=== PATIENT | male | born 1985 | race Caucasian/White ===

== ENCOUNTER → 2020-12-22 12:35 | Outpatient (CLI) | payer OTHER, SELFPAY ==
--- NOTE | 2020-12-22 | DI.MRI.S_ITS ---
PROCEDURE: MR CERVICAL SPINE WO CON INDICATIONS: Cervicalgia TECHNIQUE: Noncontrast sagittal T1 spin echo and T2 fast spin echo, sagittal STIR, foraminal oblique sagittal T2 fast spin echo, and axial gradient echo or T2 fast spin echo through the cervical spine. COMPARISON: None. FINDINGS: Image quality: Diagnostic, with note made of motion artifact. Alignment and Curvature: There is normal bony alignment. Bone Marrow: Marrow demonstrates normal overall signal. Spinal Cord: Visualized spinal cord has normal size and signal. No cerebellar tonsillar herniation. Paraspinous Soft Tissues: No paravertebral masses. Prevertebral soft tissues are normal in thickness. C2-C3: Normal appearance. C3-C4: The disc height is well-preserved. Loss of disc signal is seen at this level. Moderate generalized disc osteophyte complex is seen. There is a central disc protrusion seen. Mild facet joint hypertrophy is seen. Moderate bilateral neural foraminal narrowing is seen. Mild to moderate central canal narrowing is seen. C4-C5: The disc height and disk signal are well-preserved. A mild degree of generalized disc osteophyte complex is seen. [id number] right-sided and mild left-sided facet hypertrophy is seen. There is [id number]-vhdkhujs right-sided and mild left-sided neural foraminal narrowing seen. No significant central canal narrowing is seen. C5-C6: The disc height and disk signal are well-preserved. A mild degree of generalized disc osteophyte complex is seen. There is moderate right-sided and mild left-sided facet hypertrophy seen. There is moderate to severe right-sided and moderate left-sided neural foraminal narrowing seen. Mild central canal narrowing is seen. C6-C7: The disc height and disk signal are well-preserved. A mild degree of generalized disc osteophyte complex is seen. Mild facet joint hypertrophy is seen. There is moderate left-sided and minimal right-sided neural foraminal narrowing seen. Minimal central canal narrowing is seen. C7-T1: Normal appearance. IMPRESSION: Multiple levels of premature cervical spine degenerative change are seen, which are overall worst at C3-C4 and C5-C6. Dictated by: Emanuel William M.D. on 12/23/2020 at 9:22 Approved by: Emanuel William M.D. on 12/23/2020 at 10:05
== END ==
PROVIDERS: PCP Family Medicine; Referring Provider Family Medicine; Visit Provider Family Medicine
DX: M54.2 Cervicalgia (principal); M47.812 Spondylosis without myelopathy or radiculopathy, cervical region
CPT/HCPCS: 72141

== ENCOUNTER 2021-04-19 13:49 | Emergency (ER) | payer OTHER, SELFPAY ==
[2021-04-19 14:12] VITALS: BP 160/86; PULSE 72; RESP 18; TEMP 36.9; O2SAT 99; BMI 28.6
--- NOTE | 2021-04-19 15:09 | ED_ITS ---
HPI - Back Pain/Injury General Chief Complaint: Back Pain/Injury Stated Complaint: LT LEG NUMBNESS/BI LEG SLUGGISH/LBP Time Seen by Provider: 04/19/21 14:56 History of Present Illness HPI Narrative: 35-year-old gentleman with a history of significant orthopedic back and spine issues with chronic low back pain and recent cervical spine pain all of which are managed with lifestyle measures and minimal medications presents today complaining of numbness and weakness into the left leg after simply bending forward over a table shortly followed by pain and radicular pain down the right buttock and hamstring. The left leg numbness was over the inguinal canal and extending down the anterior and medial portion of the left leg. He found that he was significantly weak with lifting his left leg and the having some difficulty walking. He describes no specific trauma or injury to the back. He has no history of IV drug use but did have cervical epidural injection a couple of months ago. He reports no fevers, cough, chills. He comes in today because he has never had numbness or pain in this distribution and the weakness was concerning. He describes no perineal abnormalities no yosef ticular paresthesias or pain and no difficulties with urination or stooling. He has no abdominal pain, cough, chills, fever, chest pain, palpitations, vomiting or diarrhea. Related Data Previous Rx's Medication Instructions Recorded dexamethasone 4 mg tablet 10 mg PO DAILY #5 tab 04/19/21 Allergies Allergy/AdvReac Type Severity Reaction Status Date / Time titanium Allergy Blister Verified 04/19/21 14:25 vancomycin Allergy Redness of Verified 04/19/21 14:25 Skin Review of Systems Review of Systems Narrative: Remainder of complete review of systems is otherwise unremarkable except for that included in the HPI. Patient History Medical History (Updated 04/20/21 @ 09:23 by Marce Thorpe MD) Cervical spine pain Chronic low back pain Social History Smoking Status: Former smoker Smoking Status: Former smoker tobacco type: vaping alcohol intake frequency: holidays/special occasions only Substance Use Type: does not use Exam Narrative Exam Narrative: General: Healthy appearing, mild distress, standing and walking about the room to minimize pain symptoms. Able to give a complete and coherent history. Well-nourished well-developed HEENT: Moist mucous membranes, normal sclera with reactive pupils, Neck: No current cervical spine tenderness Respiratory: Lungs are clear to auscultation, no wheezing no rales no rhonchi. Full and symmetrical air movement Cardiac: Regular rate and rhythm no murmurs no bruits Abdomen: Soft, nontender, good bowel tones, no flank pain Skin: Warm and dry, no rashes Neurologic: Decreased sensation over the anterior and medial aspect of the left thigh. Weakness with hip flexion on the left. No tenderness with external or internal rotation. No sensory changes over the feet or calves bilaterally. No point tenderness over his spine. Extremities: No trauma, well perfused Psych: Cooperative, appropriate insight and affect Initial Vital Signs Initial Vital Signs: Vital Signs Temperature 98.4 F 04/19/21 14:12 Pulse Rate 72 04/19/21 14:12 Respiratory Rate 18 04/19/21 14:12 Blood Pressure 160/86 H 04/19/21 14:12 Pulse Oximetry 99 04/19/21 14:12 Course Orders Ordered: Discontinued Medications Dexamethasone (Dexamethasone 10 Mg/Ml Vial) 10 mg IV NOW ONE Stop: 04/19/21 18:27 Last Admin: 04/19/21 18:47 Dose: 10 mg Documented by: TITO Ketorolac Tromethamine (Ketorolac 30 Mg/Ml Vial) 15 mg IV NOW ONE Stop: 04/19/21 15:25 Last Admin: 04/19/21 16:39 Dose: 15 mg Documented by: JASON Ketorolac Tromethamine (Ketorolac 30 Mg/Ml Vial) 15 mg IV NOW ONE Stop: 04/19/21 18:27 Last Admin: 04/19/21 18:48 Dose: 15 mg Documented by: TITO Vital Signs Vital signs: Vital Signs - 8 hr 04/19/21 14:12 Temperature 98.4 F Pulse Rate 72 Respiratory Rate 18 Blood Pressure 160/86 H Pulse Oximetry 99 MDM - Back Pain/Injury Lab Data Result diagrams: 04/19/21 16:26 04/19/21 16:26 Labs: Lab Results 04/19/21 04/19/21 04/19/21 Range/Units 16:26 16:26 16:26 WBC 5.5 (4.5-11.0) X10^3/uL RBC 4.78 (4.5-5.9) X10^6/uL Hgb 14.2 (13.5-17.5) g/dL Hct 41.8 (41-53) % MCV 87.5 (80-100) fL MCH 29.7 (26-34) PG MCHC 34.0 (30-36) % RDW 12.2 (11.6-14.8) % Plt Count 175 (150-400) X10^3/uL Neut % (Auto) 59.9 (50-75) % Lymph % (Auto) 31.4 (25-40) % [place] % (Auto) 7.2 (3-14) % Eos % (Auto) 0.9 L (2-4) % Baso % (Auto) 0.6 (0-2) % Neut # (Auto) 3300 (6392-5947) /uL Lymph # (Auto) 1700 (8847-4177) /uL [place] # (Auto) 400 (0-900) /uL Eos # (Auto) 0 (0-450) /uL Baso # (Auto) 0 (0-100) /uL Sodium 139 (137-145) mmol/L Potassium 4.1 (3.4-5.1) mmol/L Chloride 105 (98-107) mmol/L Carbon Dioxide 25 (22-32) mmol/L BUN 11 (9-20) mg/dL Creatinine 0.80 (0.66-1.25) mg/dL Estimated GFR > 60.0 (>60) mL/min BUN/Creatinine Ratio 13.8 (6-22) Glucose 85 (70-100) mg/dL Calcium 9.3 (8.4-10.2) mg/dL Total Bilirubin 1.0 (0.2-1.3) mg/dL AST 37 (17-59) IU/L ALT 32 (<50) IU/L Alkaline Phosphatase 41 (38-126) U/L C-Reactive Protein < 0.5 (<1.0) mg/dL Total Protein 7.4 (6.3-8.2) g/dL Albumin 4.3 (3.5-5.0) g/dL Globulin 3.1 (1.7-4.1) g/dL Albumin/Globulin Ratio 1.4 (1.0-2.8) Urine Dip Bedside Urine Glucose Negative Bedside Urine Bilirubin - Negative Bedside Urine Ketone - Negative Urine Specific [place] 1.010 Bedside Urine Occult Blood - Negative Bedside Urine pH 6 Bedside Urine Protein - Negative Bedside Urine Urobilinogen - Negative Bedside Urine Nitrite - Negative Bedside Urine Leukocytes - Negative Esterase Imaging Data MRI lumbar spine: Radiologist's Impression: FINDINGS: Image quality: Excellent. Alignment and curvature: There is normal bony alignment. Marrow: Marrow is of normal overall signal. No acute vertebral body compression fractures. No suspicious marrow enhancement. Spinal cord: Conus medullaris terminates at the L1 level. Visualized spinal cord demonstrates normal signal, without suspicious enhancement. Paraspinous soft tissues: No paravertebral masses or abnormal enhancement. T12-L1: Normal appearance. L1-L2: Normal appearance. L2-L3: Normal appearance. L3-L4: Normal appearance. L4-L5: Normal appearance. L5-S1: Mild disc height loss present. There is a small 3 mm central protrusion without central or foraminal stenosis. IMPRESSION: Small 3 mm L5-S1 central protrusion without central or foraminal stenosis. Approved by: Will Alston M.D. on 04/19/2021 at 15:25 MDM Narrative Medical decision making narrative: 35-year-old gentleman with prior cervical and lumbar spine injuries and pathology presents with new and progressive paresthesia and weakness particularly in and ill 1 2 distribution left side with concurrent and worsening right-sided L4-5 radicular pain. Because of his recent epidural injection and prior injuries along with new paresthesia and weakness MRI was ordered and revealed no acute surgical emergencies. There is no epidural abscess, no hematoma no evidence of cauda equina syndrome or acute spinal cord compression. He declined any additional pain medications at this time. Was treated with 3 days of Decadron for acute inflammation and discharged home. Questions were answered. Discharge Plan Departure Patient Disposition: Home Clinical Impression: Acute back pain with radiculopathy Instructions: DI for Back Pain With Sciatica Activity Restrictions/Additional Instructions: Thank you for coming in today With the numbness in difficulty lifting up your left leg I was concerned enough that MRI was felt to be appropriate. You had an MRI of your lumbar spine that did not show infection, blood clots, acute neurologic findings or additional explanation for the left leg weakness and pain radiating down the back of your right leg that would require any acute surgical intervention. I have given you 3 days of Decadron, a powerful steroid to help reduce the inflammation to see if this helps your symptoms. I would recommend that you follow-up with your primary care physician. I wish you the best Prescriptions: New dexamethasone 4 mg tablet 10 mg PO DAILY Qty: 5 RF: 0 Referrals: Ollie Wiley MD [Primary Care Provider] -
--- NOTE | 2021-04-19 15:24 | DI.MRI.S_ITS ---
PROCEDURE: MR LUMBAR SPINE WO/W CON INDICATIONS: acute numbeness and weakness Left L1/2 level TECHNIQUE: Noncontrast sagittal T1 spin echo and T2 fast spin echo, sagittal STIR, axial T1 and T2 fast spin echo through the lumbar spine. In cases with scoliosis, additional coronal T2 fast spin echo may be performed. After the administration of contrast, sagittal and axial T1 spin echo with fat saturation through the lumbar spine. COMPARISON: None. FINDINGS: Image quality: Excellent. Alignment and curvature: There is normal bony alignment. Marrow: Marrow is of normal overall signal. No acute vertebral body compression fractures. No suspicious marrow enhancement. Spinal cord: Conus medullaris terminates at the L1 level. Visualized spinal cord demonstrates normal signal, without suspicious enhancement. Paraspinous soft tissues: No paravertebral masses or abnormal enhancement. T12-L1: Normal appearance. L1-L2: Normal appearance. L2-L3: Normal appearance. L3-L4: Normal appearance. L4-L5: Normal appearance. L5-S1: Mild disc height loss present. There is a small 3 mm central protrusion without central or foraminal stenosis. IMPRESSION: Small 3 mm L5-S1 central protrusion without central or foraminal stenosis. Approved by: Will Alston M.D. on 04/19/2021 at 15:25
--- NOTE | 2021-04-19 16:14 | PC.NURSE ---
Pt taken to MRI with out IV or blood draw.
[2021-04-19 16:35] LABS: Add Manual Diff / Slide Review NO; Basophils Absolute Auto 0 /uL (0-100); Basophils Percent Auto 0.6 % (0-2); Eosinophils Absolute Auto 0 /uL (0-450); Eosinophils Percent Auto 0.9 % (2-4); Hematocrit 41.8 % (41-53); Hemoglobin 14.2 g/dL (13.5-17.5); Lymphocytes Absolute Auto 1700 /uL (1100-4500); Lymphocytes Percent Auto 31.4 % (25-40); Mean Corpuscular Hemoglobin 29.7 PG (26-34); Mean Corpuscular Volume 87.5 fL (80-100); Monocytes Absolute Auto 400 /uL (0-900); Monocytes Percent Auto 7.2 % (3-14); Neutrophils Absolute Auto 3300 /uL (1500-7000); Neutrophils Percent Auto 59.9 % (50-75); Platelet Count 175 X10^3/uL (150-400); Red Blood Cell Count 4.78 X10^6/uL (4.5-5.9); Red Cell Distribution Width 12.2 % (11.6-14.8); White Blood Cell Count 5.5 X10^3/uL (4.5-11.0)
[2021-04-19] MEDS: KETOROLAC 30 MG/ML VIAL 15 MG IV ×2 (16:39→18:48)
[2021-04-19 16:52] LABS: Alanine Aminotransferase 32 IU/L (<50); Albumin 4.3 g/dL (3.5-5.0); Albumin Globulin Ratio 1.4 (1.0-2.8); Alkaline Phosphatase 41 U/L (38-126); Aspartate Aminotransferase 37 IU/L (17-59); BUN Creatinine Ratio 13.8 (6-22); Blood Urea Nitrogen 11 mg/dL (9-20); Calcium 9.3 mg/dL (8.4-10.2); Carbon Dioxide 25 mmol/L (22-32); Chloride 105 mmol/L (98-107); Estimated Glomerular Filt Rate > 60.0 mL/min (>60); Globulin 3.1 g/dL (1.7-4.1); Glucose 85 mg/dL (70-100); Potassium 4.1 mmol/L (3.4-5.1); Sodium 139 mmol/L (137-145); Total Protein 7.4 g/dL (6.3-8.2)
[2021-04-19 16:55] LABS: HEMOLYSIS 64 (0-50)
[2021-04-19 16:56] LABS: C-Reactive Protein Quant < 0.5 mg/dL (<1.0)
[2021-04-19] MEDS: DEXAMETHASONE 10 MG/ML VIAL IV (18:47)
[2021-04-19 19:21] VITALS: BP 122/80; PULSE 54; RESP 18; O2SAT 98
== END 2021-04-19 19:24 | disposition home or self-care (01) ==
PROVIDERS: Emergency Provider Emergency Medicine; PCP Family Medicine
DX: M54.16 Radiculopathy, lumbar region (principal)
CPT/HCPCS: 72158; 80053; 81003; 85025; 86140; 96374; 96375; 96376; 99283; 99284; A9579; J1100; J1885

== ENCOUNTER 2022-03-25 14:07 | Emergency (ER) | payer OTHER, SELFPAY ==
[2022-03-25 14:25] VITALS: BP 166/79; PULSE 76; RESP 12; TEMP 36.1; O2SAT 100; BMI 27.3
[2022-03-25 16:17] VITALS: O2SAT 100
[2022-03-25 16:18] VITALS: BP 144/87; PULSE 74; O2SAT 98
--- NOTE | 2022-03-25 16:24 | PC.NURSE ---
Pt reports new onset numbness and tingling to bilateral arms that began last night. Pt reports hx of C3-C4 herniation diagnosed 1.5 years ago. No recent trauma. Pt reports taking gabapentin, tramadol, and 2 tylenol with no improvement. Call light within reach.
[2022-03-25 16:27] VITALS: BP 144/87; PULSE 72; RESP 16; O2SAT 98
--- NOTE | 2022-03-25 17:05 | ED.NECK ---
HPI - Neck Pain/Injury General Chief Complaint: Neck Pain/Injury Stated Complaint: NUBMNESS IN BOTH ARMS/PAIN IN NECK Time Seen by Provider: 03/25/22 16:37 Mode of arrival: Family Vehicle History of Present Illness HPI Narrative: Patient is a 36-year-old male who has history of anxiety PTSD chronic neck pain and cervical strain is presenting today with worsening neck pain arm numbness and weakness. He says over last 1 week he has been dropping things. 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 He has some numbness in his left lower arm and right upper arm. He actually had a MRI of his cervical spine and lumbar spine year ago, cervical MRI showed multiple levels of premature cervical spine degenerative change were seen. He has fairly good regimen of tramadol gabapentin ibuprofen and Flexeril which he takes every night he said last night did not help. Related Data Previous Rx's Medication Instructions Recorded dexamethasone 4 mg tablet 10 mg PO DAILY #5 tabs 04/19/21 oxycodone 5 mg tablet 5 mg PO Q6H PRN pain #10 tabs 03/25/22 prednisone 20 mg tablet 40 mg PO DAILY #10 tabs 03/25/22 Allergies Allergy/AdvReac Type Severity Reaction Status Date / Time titanium Allergy Blister Verified 03/25/22 14:31 vancomycin Allergy Redness of Verified 03/25/22 14:31 Skin acetaminophen [From Tylenol] AdvReac Gastrointestinal Verified 03/25/22 14:31 Upset Review of Systems Review of Systems Narrative: GENERAL: Denies chills, fatigue, malaise, fever, sweats, travel HEENT: Denies sinus pain, ear pain, sore throat, difficulty swallowing, neck pain RESPIRATORY: Denies dyspnea, cough, wheezing, hemoptysis, sputum. CARDIOVASCULAR: Denies chest pain, palpitations, orthopnea, edema GASTROINTESTINAL: Denies nausea, vomiting, abdominal pain, diarrhea, constipation, melena. : Denies dysuria, frequency, incontinence, hematuria, urinary retention, flank pain. MUSCULOSKELETAL: See HPI SKIN: No rash, no erythema, no pruritus NEUROLOGIC: See HPI PSYCHIATRIC: No concerning psychosocial issues. 12 point review of systems is negative except for those stated above and HPI Patient History Medical History (Updated 03/25/22 @ 19:24 by Kristi Caballero DO) Cervical spine pain Chronic low back pain Social History Smoking Status: Former smoker Smoking Status: Former smoker tobacco type: vaping alcohol intake frequency: holidays/special occasions only Substance Use Type: does not use Exam Initial Vital Signs Initial Vital Signs: Vital Signs Temperature 97.0 F L 03/25/22 14:25 Pulse Rate 76 03/25/22 14:25 Respiratory Rate 12 03/25/22 14:25 Blood Pressure 166/79 H 03/25/22 14:25 Pulse Oximetry 100 03/25/22 14:25 Oxygen Delivery Method 03/25/22 14:25 GENERAL: Alert 36 old male appears uncomfortable and in no acute distress. HEENT: Head atraumatic,EOMI, pupils reactive, face symmetric, moist mucous membranes NECKPainful paraspinal muscles decreased range of motion from CARDIOVASCULAR: Regular rate and rhythm without murmurs, rubs or gallops. RESPIRATORY: Breath sounds equal bilaterally, no wheezes rales or rhonchi. ABDOMEN: Soft, nontender. Normoactive bowel sounds all 4 quadrants. No guarding or rebound. EXTREMITIES: Normal range of motion, no clubbing or edema. Neurovascularly intact Significant weakness in upper extremities. Able to do bilateral wrist flexion and extension finger ab and adduction NEUROLOGICAL: Alert and oriented x4.Normal gait and speech. SKIN: Warm, dry, no laceration, no petechiae, no rashes or lesions. Course Orders Ordered: ED Orders 03/25/22 17:14 MR cervical spine wo con Stat Discontinued Medications Diazepam (Diazepam 5 Mg Tablet) 5 mg PO NOW ONE Stop: 03/25/22 17:15 Last Admin: 03/25/22 17:26 Dose: 5 mg Documented By: BASSEM Hydromorphone HCl (Hydromorphone 2 Mg Inj) 1 mg SUBCUT Q4H PRN PRN Reason: Pain, Severe (7-10) Last Admin: 03/25/22 17:24 Dose: 1 mg Documented By: BASSEM Vital Signs Vital signs: Vital Signs - 8 hr 03/25/22 14:25 03/25/22 16:27 03/25/22 16:17 Temperature 97.0 F L Pulse Rate 76 72 Respiratory Rate 12 16 Blood Pressure 166/79 H 144/87 H Pulse Oximetry 100 98 100 Oxygen Delivery Method Room Air Room Air 03/25/22 16:18 03/25/22 16:18 03/25/22 19:41 Temperature Pulse Rate 74 73 Respiratory Rate 16 Blood Pressure 144/87 H 145/85 H Pulse Oximetry 98 99 Oxygen Delivery Method Room Air MDM - Neck Pain/Injury Imaging Data MR cervical: Radiologist's Impression: Magnetic Resonance Report Signed Patient: Yuriy Viera MR#: [id number] : 1985 Acct:[id number] Age/Sex: 36 / M Date of Service: 03/25/22 Loc: ED Accession Number: [id number] ?? Procedure: MR cervical spine wo con Ordering Provider: Kristi Caballero D.O. PROCEDURE:? MR CERVICAL SPINE WO CON ? INDICATIONS:? dropping things, more weak on left ? TECHNIQUE:? Noncontrast sagittal T1 spin echo and T2 fast spin echo, sagittal STIR, foraminal oblique sagittal T2 fast spin echo, and axial gradient echo or T2 fast spin echo through the cervical spine.? ? COMPARISON:? [facility], , MR CERVICAL SPINE WO CON, 12/22/2020, 13:14. ? FINDINGS:? Image quality:? Excellent.? ? Alignment and Curvature:? There is normal bony alignment.? ? Bone Marrow:? Marrow demonstrates normal overall signal.? ? Spinal Cord:? Visualized spinal cord has normal size and signal.? No cerebellar tonsillar herniation.? ? Paraspinous Soft Tissues:? No paravertebral masses.? Prevertebral soft tissues are normal in thickness.? ? C2-C3:? Normal appearance.? ? C3-C4:? Disc space narrowing present.? Central focal protrusion measures 3 mm in thickness and indents the ventral surface of the cord, slightly enlarged compared to the prior exam.? No cord edema ? C4-C5:? Normal appearance.? ? C5-C6:? Normal appearance.? ? C6-C7:? Normal appearance.? ? C7-T1:? Normal appearance.? ? IMPRESSION:? ? Focal central C3-4 disc protrusion which indents the ventral surface of the cord and has enlarged from the prior exam.? No cord edema. ? Otherwise unremarkable MRI cervical spine ? ? ? Approved by: Will Alston M.D. on 03/25/2022 at 17:46? MDM Narrative Medical decision making narrative: Patient has worsening chronic neck pain and now with upper extremity weakness and numbness and tingling. His MRI does show worsening disc protrusion at C3-C4 without cord edema. Patient is ambulatory in the room. He is slightly better after medications here. 1900 Dr. Edward orthopedics has been updated patient's symptoms and test results recommends outpatient follow-up. Agrees with short course of prednisone. Discussed results with patient and . He actually has been seen by Dr. Galindo previously a recommend re-evaluation. Patient states that he does not do well with Tylenol. He is requesting some other type of medication for breakthrough pain despite his ongoing regimen. I have given him few oxycodone. Discharge Plan Departure Patient Disposition: Home Clinical Impression: Bulging of cervical intervertebral disc Instructions: Chronic Neck Pain Activity Restrictions/Additional Instructions: *You have been diagnosed with C3-C4 disc protrusion *What to do: At this time I do recommend that he see Orthopedic Spine surgery for further information possible surgery versus other option *Continue to take medications as directed Oxycodone 5 mg every 6 hours only if needed for severe pain Prednisone 40 mg once a day for 5 days *Follow up with your primary care provider in 2-3 days or call [phone] Dr. Galindo call tomorrow to schedule follow-up appointment *Return to ER if you should have increasing weakness in hands, fever or any new, worsening or concerning symptoms CONTROLLED SUBSTANCE DISCHARGE (Narcotoic/benzodiazepine/Flexeril/Phenergan) 1. You have been prescribed narcotic medications, it does have acetaminophen/Tylenol/paracetamol in it, DO NOT TAKE MORE THAN 4,00mg in 24 hours of Tylenol. TRAMADOL DOES NOT CONTAIN TYLENOL 2. Please understand that we cannot provide further refills of narcotics, benzodiazepines or controlled substances through the ED and her pain management will need to be through your provider. 3. While on these medications you cannot drive or operate heavy machinery. 4. You cannot sign legal documents or perform any duties such as this. 5. As long as you're taking opiate pain medications he should also be taking a stool softener such as Colace, Dulcolax, MiraLAX or prune juice, to help avoid constipation. Prescriptions: New oxycodone 5 mg tablet 5 mg PO Q6H PRN (Reason: pain) Qty: 10 0RF prednisone 20 mg tablet 40 mg PO DAILY Qty: 10 0RF No Action dexamethasone 4 mg tablet 10 mg PO DAILY Qty: 5 0RF Referrals: René Nuñez MD [Physician] - Ollie Wiley MD [Primary Care Provider] - Stand Alone Forms: Work Release Note Visit Report Forms: Patient Portal/API
--- NOTE | 2022-03-25 17:14 | DI.MRI.S_ITS ---
PROCEDURE: MR CERVICAL SPINE WO CON INDICATIONS: dropping things, more weak on left TECHNIQUE: Noncontrast sagittal T1 spin echo and T2 fast spin echo, sagittal STIR, foraminal oblique sagittal T2 fast spin echo, and axial gradient echo or T2 fast spin echo through the cervical spine. COMPARISON: [facility], MR, MR CERVICAL SPINE WO CON, 12/22/2020, 13:14. FINDINGS: Image quality: Excellent. Alignment and Curvature: There is normal bony alignment. Bone Marrow: Marrow demonstrates normal overall signal. Spinal Cord: Visualized spinal cord has normal size and signal. No cerebellar tonsillar herniation. Paraspinous Soft Tissues: No paravertebral masses. Prevertebral soft tissues are normal in thickness. C2-C3: Normal appearance. C3-C4: Disc space narrowing present. Central focal protrusion measures 3 mm in thickness and indents the ventral surface of the cord, slightly enlarged compared to the prior exam. No cord edema C4-C5: Normal appearance. C5-C6: Normal appearance. C6-C7: Normal appearance. C7-T1: Normal appearance. IMPRESSION: Focal central C3-4 disc protrusion which indents the ventral surface of the cord and has enlarged from the prior exam. No cord edema. Otherwise unremarkable MRI cervical spine Approved by: Will Alston M.D. on 03/25/2022 at 17:46
[2022-03-25] MEDS: HYDROMORPHONE 2 MG INJ 1 MG SUBCUT (17:24)
[2022-03-25] MEDS: diazePAM 5 MG TABLET PO (17:26)
[2022-03-25 19:41] VITALS: BP 145/85; PULSE 73; RESP 16; O2SAT 99
== END 2022-03-25 19:38 | disposition home or self-care (01) ==
PROVIDERS: Emergency Provider Emergency Medicine; PCP Family Medicine
DX: M50.30 Other cervical disc degeneration, unspecified cervical region (principal); R20.0 Anesthesia of skin
CPT/HCPCS: 72141; 96372; 99283; 99284; J1170

== ENCOUNTER 2022-11-26 01:42 | Emergency (ER) | payer OTHER, SELFPAY ==
[2022-11-26] VITALS (37 sets, daily range): BP systolic 111–147; BP diastolic 62–99; PULSE 51–77; RESP 12–18; TEMP 36.8–37.1; O2SAT 95–100; BMI 25.1
--- NOTE | 2022-11-26 | DI.CT.S_ITS ---
PROCEDURE: CT STROKE INDICATIONS: STROKE TECHNIQUE: Noncontrast 4.5 mm thick angled axial sections acquired from the foramen magnum to the vertex, with coronal reformats. For radiation dose reduction, the following was used: automated exposure control, adjustment of mA and/or kV according to patient size. COMPARISON: None. FINDINGS: Image quality: Excellent. CSF spaces: Basal cisterns are patent. No extra-axial fluid collections. Ventricles are normal in size and shape. Brain: No midline shift. No intracranial masses or hemorrhage. Bettencourt-white matter interface is normal. Skull and face: Calvarium and visualized facial bones are intact, without suspicious lesions. Sinuses: Visualized sinuses and mastoids are clear. IMPRESSION: CT head without acute intracranial abnormalities. No mass or mass effect visualized. No significant discrepancy with the machine setter supervisor radiology preliminary report. Findings were discussed with Marina Corrigan RN by the overnight radiologist at 0213 hrs PST. This study fulfills neurological imaging criteria for inclusion or exclusion of acute stroke therapies based on available published neurological imaging guidelines. Dictated by: Ollie Cash M.D. on 11/26/2022 at 7:20 Approved by: Ollie Cash M.D. on 11/26/2022 at 7:22
--- NOTE | 2022-11-26 02:19 | DI.CT.S_ITS ---
PROCEDURE: CT ANGIO HEAD AND NECK INDICATIONS: neck paiin, left sided symptoms, arm/neck/leg weak TECHNIQUE: After the administration of intravenous contrast, 1 mm thick sections acquired from the aortic arch through the [place] of [place]. Post-contrast 4.5 mm thick sections then re-acquired from the foramen magnum to the vertex. 3-dimensional ejbhvto-iiyelpfwr-gasoryrxte (MIP) and/or volume rendering reformats were acquired of the central intracranial vasculature and neck separately. For radiation dose reduction, the following was used: automated exposure control, adjustment of mA and/or kV according to patient size. COMPARISON: None. FINDINGS: Image quality: Excellent. BRAIN: CSF spaces: Ventricles are normal in size and shape. Basal cisterns are patent. No extra-axial fluid collections. Brain: No midline shift. No intracranial bleeds or masses. [place]court-white matter interface appears intact. Skull and face: Calvarium and facial bones appear intact, without suspicious lesions. Orbits appear normal. Sinuses: Sinuses and mastoids are clear. HEAD CT ANGIOGRAPHY: Anterior circulation: Intracranial internal carotid arteries appear patent without high-grade stenosis. There is flow/opacification within the paired anterior cerebral arteries. There is opacification within the middle cerebral arteries. The anterior communicating artery is seen. No aneurysms are seen. No occlusion. Posterior circulation: Visualized portions of the vertebral arteries are patent and join to form a normal appearing basilar artery. No evidence for high-grade stenosis. No occlusions. There is opacification of the posterior cerebral arteries. No aneurysms are seen. NECK CT ANGIOGRAPHY: Carotid system: The great vessels demonstrate a conventional anatomy as they arise from the aortic arch. The origins of the common carotid arteries appear patent. The common carotid arteries appear patent throughout their visualized courses without high grade stenosis. The bifurcation regions are both patent without high grade stenosis. The internal carotid arteries demonstrate normal calibers and courses. Posterior circulation: The origins of the vertebral arteries both appear patent without hemodynamically significant stenosis. The more superior extracranial portions of both vertebral arteries also demonstrate normal courses and calibers. They join to form a normal appearing basilar artery. Soft tissues: Visualized neck soft tissues demonstrate no suspicious abnormalities. Bones: No suspicious bony lesions. Visualized cervical spine appears normally aligned. No acute compression fractures of the vertebral bodies. IMPRESSION: Negative CT angiogram of the head and neck. No evidence for occlusion, hemodynamically significant stenosis, aneurysm, or dissection. No significant discrepancy with the assembler 1st shift radiology preliminary report. Any quantitative measurements of stenosis were performed using NASCET criteria. Dictated by: Ollie Cash M.D. on 11/26/2022 at 7:22 Approved by: Ollie Cash M.D. on 11/26/2022 at 7:25
--- NOTE | 2022-11-26 02:20 | ED.NEUROSD ---
HPI - Neuro Symptoms/Deficit <DO Yelena Caro Last Filed: 11/27/22 03:06> General Chief Complaint: Neuro Symptoms/Deficit Stated Complaint: stroke like symptoms Time Seen by Provider: 11/26/22 02:18 Source: patient Mode of arrival: Ambulatory History of Present Illness HPI Narrative: 37-year-old male former smoker with history of prior neck issues presents with his and the chief complaint pain and neurologic symptoms that started at about 8 or 8:30 p.m. tonight. 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 On Anticoagulants: No Related Data Previous Rx's Medication Instructions Recorded dexamethasone 4 mg tablet 10 mg PO DAILY #5 tabs 04/19/21 oxycodone 5 mg tablet 5 mg PO Q6H PRN pain #10 tabs 03/25/22 prednisone 20 mg tablet 40 mg PO DAILY #10 tabs 03/25/22 Allergies Allergy/AdvReac Type Severity Reaction Status Date / Time titanium Allergy Blister Verified 03/25/22 14:31 vancomycin Allergy Redness of Verified 03/25/22 14:31 Skin acetaminophen [From Tylenol] AdvReac Gastrointestinal Verified 03/25/22 14:31 Upset Review of Systems <DO Yelena Caro Last Filed: 11/27/22 03:06> Review of Systems Narrative: GENERAL: Denies chills, fatigue, malaise, fever, sweats. HEENT: Denies sinus pain, ear pain, sore throat, difficulty swallowing, dizziness. RESPIRATORY: Denies dyspnea, cough, wheezing, hemoptysis, sputum. CARDIOVASCULAR: Denies chest pain, palpitations, orthopnea, edema, GASTROINTESTINAL: Denies nausea, vomiting, abdominal pain, diarrhea, constipation, melena. : Denies dysuria, frequency, incontinence, hematuria, urinary retention. MUSCULOSKELETAL: See HPI SKIN: Denies rash, skin lesions, or other NEUROLOGIC: See HPI PSYCHIATRIC: No concerning psychosocial issues. 12 point review of systems is negative except for those stated above Hematologic/Lymphatic On Anticoagulants: No Patient History <DO Yelena Caro Filed: 11/27/22 03:06> Medical History Cervical spine pain Chronic low back pain Social History Smoking Status: Former smoker Smoking Status: Former smoker tobacco type: vaping alcohol intake frequency: holidays/special occasions only Substance Use Type: does not use Exam <Dean Vidal DO - Last Filed: 11/27/22 03:06> Narrative Exam Narrative: GENERAL: [37] year old patient appears stated age. Well-developed patient, in mild distress. HEAD: Atraumatic. Normocephalic. EYES: Pupils equal round and reactive. Extraocular motions intact. No scleral icterus. No injection or drainage. ENT: Nose without bleeding, purulent drainage. Throat without erythema, tonsillar hypertrophy or exudate. Airway patent. NECK: Trachea midline. Left-sided paraspinal tenderness to palpation, no obvious increase with axial loading CARDIOVASCULAR: Regular rate and rhythm without murmurs, gallops, or rubs. RESPIRATORY: Clear to auscultation. Breath sounds equal bilaterally. No wheezes, rales, or rhonchi. GASTROINTESTINAL: Abdomen soft, non-tender, nondistended. EXTREMITIES: No edema or joint tenderness. BACK: Nontender without deformity or crepitance. No flank tenderness. NEURO: AOx3. Significant decrease in left upper extremity strength and sensation, particularly in the distribution of C3, C4. Also decreased strength in left lower extremity with decreased sensation. SKIN: No rash or erythema of visible areas Initial Vital Signs Initial Vital Signs: Vital Signs Temperature 98.2 F 11/26/22 01:46 Pulse Rate 72 11/26/22 01:46 Respiratory Rate 18 11/26/22 01:46 Blood Pressure 134/88 11/26/22 01:46 Pulse Oximetry 99 11/26/22 01:46 Oxygen Delivery Method Room Air 11/26/22 01:46 <Deric Xiong MD - Last Filed: 11/28/22 22:30> Initial Vital Signs Initial Vital Signs: Vital Signs Temperature 98.2 F 11/26/22 01:46 Pulse Rate 72 11/26/22 01:46 Respiratory Rate 18 11/26/22 01:46 Blood Pressure 134/88 03/23/23 01:46 Pulse Oximetry 99 11/26/22 01:46 Oxygen Delivery Method Room Air 11/26/22 01:46 Scores <Dean Vidal DO - Last Filed: 11/27/22 03:06> NIH Stroke Scale Level of Conciousness: Alert, keenly responsive Ask month/age: Answers both questions correctly. Open/close eyes, close hand: Performs both tasks correctly Best gaze horizontal: Normal Visual youssef: No visual loss Facial palsy: Normal symetrical movement Left arm drift: Drifts down, not to bed Right arm drift: No drift for full 10 sec Left leg drift: Drifts down, not to bed Right leg drift: No drift for full 5 sec Limb ataxia: Absent Sensory on face/arms/legs: Mild to moderate sensory loss, can tell touch Best language: No aphasia, normal Dysarthria: Normal Extinction or inattention: No abnormality Total NIH Stroke scale score: 3 <Deric Xiong MD - Last Filed: 11/28/22 22:30> NIH Stroke Scale Total NIH Stroke scale score: 3 Course <Dean Vidal DO - Last Filed: 11/27/22 03:06> Orders Ordered: Discontinued Medications Dexamethasone (Dexamethasone 10 Mg/Ml Vial) 10 mg IV NOW ONE Stop: 11/26/22 03:44 Last Admin: 11/26/22 04:04 Dose: 10 mg Documented By: PADMA Gabapentin (Gabapentin 300 Mg Capsule) 300 mg PO NOW ONE Stop: 11/26/22 03:44 Last Admin: 11/26/22 04:04 Dose: 300 mg Documented By: PADMA Oxycodone/Acetaminophen (Oxycodone/Acetaminophen 5/325 Tablet) 1 tab PO NOW ONE Stop: 11/26/22 03:44 Last Admin: 11/26/22 04:03 Dose: 1 tab Documented By: PADMA Vital Signs Vital signs: Vital Signs - 8 hr 11/26/22 01:46 11/26/22 01:57 11/26/22 01:58 Temperature 98.2 F Pulse Rate 72 70 Respiratory Rate 18 Blood Pressure 134/88 144/85 H Pulse Oximetry 99 99 Oxygen Delivery Method Room Air 11/26/22 01:58 11/26/22 02:09 11/26/22 02:09 Temperature Pulse Rate 68 Respiratory Rate 12 Blood Pressure 146/90 H 147/96 H Pulse Oximetry 100 Oxygen Delivery Method 11/26/22 02:10 11/26/22 02:10 11/26/22 02:15 Temperature Pulse Rate 75 63 Respiratory Rate Blood Pressure 142/99 H Pulse Oximetry 100 100 Oxygen Delivery Method 11/26/22 02:15 11/26/22 02:20 11/26/22 02:20 Temperature Pulse Rate 65 Respiratory Rate Blood Pressure 136/76 143/79 H Pulse Oximetry 99 Oxygen Delivery Method 11/26/22 02:25 11/26/22 02:25 11/26/22 02:30 Temperature Pulse Rate 64 Respiratory Rate Blood Pressure 137/77 124/75 Pulse Oximetry 98 Oxygen Delivery Method 11/26/22 02:30 11/26/22 02:35 11/26/22 02:35 Temperature Pulse Rate 61 58 L Respiratory Rate 12 Blood Pressure 128/74 Pulse Oximetry 97 96 Oxygen Delivery Method 11/26/22 02:49 11/26/22 02:49 11/26/22 02:50 Temperature Pulse Rate 63 62 Respiratory Rate Blood Pressure 119/74 Pulse Oximetry 97 97 Oxygen Delivery Method 11/26/22 02:50 11/26/22 02:55 11/26/22 02:55 Temperature Pulse Rate 67 Respiratory Rate Blood Pressure 117/68 143/93 H Pulse Oximetry Oxygen Delivery Method 11/26/22 03:00 11/26/22 03:00 Temperature Pulse Rate 60 Respiratory Rate Blood Pressure 121/69 Pulse Oximetry 97 Oxygen Delivery Method <Deric Xiong MD - Last Filed: 11/28/22 22:30> Orders Ordered: Discontinued Medications Dexamethasone (Dexamethasone 10 Mg/Ml Vial) 10 mg IV NOW ONE Stop: 11/26/22 03:44 Last Admin: 11/26/22 04:04 Dose: 10 mg Documented By: PADMA Gabapentin (Gabapentin 300 Mg Capsule) 300 mg PO NOW ONE Stop: 11/26/22 03:44 Last Admin: 11/26/22 04:04 Dose: 300 mg Documented By: PADMA Oxycodone/Acetaminophen (Oxycodone/Acetaminophen 5/325 Tablet) 1 tab PO NOW ONE Stop: 11/26/22 03:44 Last Admin: 11/26/22 04:03 Dose: 1 tab Documented By: PADMA Vital Signs Vital signs: Vital Signs - 8 hr 11/26/22 01:46 11/26/22 01:57 11/26/22 01:58 Temperature 98.2 F Pulse Rate 72 70 Respiratory Rate 18 Blood Pressure 134/88 144/85 H Pulse Oximetry 99 99 Oxygen Delivery Method Room Air 11/26/22 01:58 11/26/22 02:09 11/26/22 02:09 Temperature Pulse Rate 68 Respiratory Rate 12 Blood Pressure 146/90 H 147/96 H Pulse Oximetry 100 Oxygen Delivery Method 11/26/22 02:10 11/26/22 02:10 11/26/22 02:15 Temperature Pulse Rate 75 63 Respiratory Rate Blood Pressure 142/99 H Pulse Oximetry 100 100 Oxygen Delivery Method 11/26/22 02:15 11/26/22 02:20 11/26/22 02:20 Temperature Pulse Rate 65 Respiratory Rate Blood Pressure 136/76 143/79 H Pulse Oximetry 99 Oxygen Delivery Method 11/26/22 02:25 11/26/22 02:25 11/26/22 02:30 Temperature Pulse Rate 64 Respiratory Rate Blood Pressure 137/77 124/75 Pulse Oximetry 98 Oxygen Delivery Method 11/26/22 02:30 11/26/22 02:35 11/26/22 02:35 Temperature Pulse Rate 61 58 L Respiratory Rate 12 Blood Pressure 128/74 Pulse Oximetry 97 96 Oxygen Delivery Method 11/26/22 02:49 11/26/22 02:49 11/26/22 02:50 Temperature Pulse Rate 63 62 Respiratory Rate Blood Pressure 119/74 Pulse Oximetry 97 97 Oxygen Delivery Method 11/26/22 02:50 11/26/22 02:55 11/26/22 02:55 Temperature Pulse Rate 67 Respiratory Rate Blood Pressure 117/68 143/93 H Pulse Oximetry Oxygen Delivery Method 11/26/22 03:00 11/26/22 03:00 Temperature Pulse Rate 60 Respiratory Rate Blood Pressure 121/69 Pulse Oximetry 97 Oxygen Delivery Method MDM - Neuro Symptoms/Deficit <Dean Vidal DO - Last Filed: 11/27/22 03:06> Lab Data 11/26/22 01:55 11/26/22 01:55 Labs: Lab Results 11/26/22 11/26/22 11/26/22 Range/Units 01:55 01:55 01:55 WBC 5.5 (4.5-11.0) X10^3/uL RBC 4.76 (4.5-5.9) X10^6/uL Hgb 13.9 (13.5-17.5) g/dL Hct 41.1 (41-53) % MCV 86.4 (80-100) fL MCH 29.2 (26-34) PG MCHC 33.8 (30-36) % RDW 13.2 (11.6-14.8) % Plt Count 193 (150-400) X10^3/uL Neut % (Auto) 40.2 L (50-75) % Lymph % (Auto) 46.9 H (25-40) % [place] % (Auto) 10.8 (3-14) % Eos % (Auto) 1.6 L (2-4) % Baso % (Auto) 0.5 (0-2) % Neut # (Auto) 2200 (6051-0857) /uL Lymph # (Auto) 2600 (9689-7557) /uL [place] # (Auto) 600 (0-900) /uL Eos # (Auto) 100 (0-450) /uL Baso # (Auto) 0 (0-100) /uL PT 13.8 H (10.1-12.7) SECONDS INR 1.2 (0.9-1.3) APTT 34 (26-36) SECONDS Sodium 140 (137-145) mmol/L Potassium 3.4 (3.4-5.1) mmol/L Chloride 102 (98-107) mmol/L Carbon Dioxide 27 (22-32) mmol/L BUN 11 (9-20) mg/dL Creatinine 0.88 (0.66-1.25) mg/dL Estimated GFR > 60 (>60) mL/min BUN/Creatinine Ratio 12.5 (6-22) Glucose 81 (70-100) mg/dL Calcium 9.1 (8.4-10.2) mg/dL Total Bilirubin 1.0 (0.2-1.3) mg/dL AST 25 (17-59) IU/L ALT 35 (<50) IU/L Alkaline Phosphatase 38 (38-126) U/L Total Creatine Kinase 60 (55-170) U/L CK-MB (CK-2) TNP CK-MB (CK-2) Rel Index TNP Troponin I < 0.012 (0.01-0.034) ng/mL Total Protein 7.4 (6.3-8.2) g/dL Albumin 4.5 (3.5-5.0) g/dL Globulin 2.9 (1.7-4.1) g/dL Albumin/Globulin Ratio 1.6 (1.0-2.8) Urine Color Urine Appearance Urine pH (4.5-8.0) Ur Specific [place] (1.000-1.035) Urine Protein (Negative) Urine Glucose (UA) (Negative) g/dL Urine Ketones (NEGATIVE) Urine Occult Blood (Negative) Urine Nitrate (Negative) Urine Bilirubin (NEGATIVE) Urine Urobilinogen (0.2) E.U./dL Ur Leukocyte Esterase (NEGATIVE) Urine RBC (0-5/HPF) Urine WBC (0-5/HPF) Urine Bacteria (None) Ur Culture Indicated? Micro UA Comment U Opiates 300ng/mL cut (Negative) Ur Oxycodone Screen (Negative) Urine Methadone Screen (Negative) Ur Barbiturates Screen (Negative) U Tricyclic Antidepress (Negative) Ur Phencyclidine Scrn (Negative) Ur Amphetamines Screen (Negative) U Methamphetamines Scrn (Negative) Ur MDMA Scrn (Ecstasy) (Negative) U Benzodiazepines Scrn (Negative) Urine Cocaine Screen (Negative) U Marijuana (THC) Screen (Negative) Ethyl Alcohol < 10 ( - 10) mg/dL SARS-CoV-2 (PCR) (Negative) 11/26/22 11/26/22 11/26/22 Range/Units 02:35 02:55 02:55 WBC (4.5-11.0) X10^3/uL RBC (4.5-5.9) X10^6/uL Hgb (13.5-17.5) g/dL Hct (41-53) % MCV (80-100) fL MCH (26-34) PG MCHC (30-36) % RDW (11.6-14.8) % Plt Count (150-400) X10^3/uL Neut % (Auto) (50-75) % Lymph % (Auto) (25-40) % [place] % (Auto) (3-14) % Eos % (Auto) (2-4) % Baso % (Auto) (0-2) % Neut # (Auto) (4082-2323) /uL Lymph # (Auto) (8753-1931) /uL [place] # (Auto) (0-900) /uL Eos # (Auto) (0-450) /uL Baso # (Auto) (0-100) /uL PT (10.1-12.7) SECONDS INR (0.9-1.3) APTT (26-36) SECONDS Sodium (137-145) mmol/L Potassium (3.4-5.1) mmol/L Chloride (98-107) mmol/L Carbon Dioxide (22-32) mmol/L BUN (9-20) mg/dL Creatinine (0.66-1.25) mg/dL Estimated GFR (>60) mL/min BUN/Creatinine Ratio (6-22) Glucose (70-100) mg/dL Calcium (8.4-10.2) mg/dL Total Bilirubin (0.2-1.3) mg/dL AST (17-59) IU/L ALT (<50) IU/L Alkaline Phosphatase (38-126) U/L Total Creatine Kinase (55-170) U/L CK-MB (CK-2) CK-MB (CK-2) Rel Index Troponin I (0.01-0.034) ng/mL Total Protein (6.3-8.2) g/dL Albumin (3.5-5.0) g/dL Globulin (1.7-4.1) g/dL Albumin/Globulin Ratio (1.0-2.8) Urine Color Yellow Urine Appearance Clear Urine pH 6.0 (4.5-8.0) Ur Specific [place] 1.010 (1.000-1.035) Urine Protein Negative (Negative) Urine Glucose (UA) Negative (Negative) g/dL Urine Ketones Negative (NEGATIVE) Urine Occult Blood Negative (Negative) Urine Nitrate Negative (Negative) Urine Bilirubin Negative (NEGATIVE) Urine Urobilinogen 0.2 (0.2) E.U./dL Ur Leukocyte Esterase Negative (NEGATIVE) Urine RBC None seen (0-5/HPF) Urine WBC None seen (0-5/HPF) Urine Bacteria None seen (None) Ur Culture Indicated? Cult not indicated Micro UA Comment Microscopic normal U Opiates 300ng/mL cut Negative (Negative) Ur Oxycodone Screen Negative (Negative) Urine Methadone Screen Negative (Negative) Ur Barbiturates Screen Negative (Negative) U Tricyclic Antidepress Negative (Negative) Ur Phencyclidine Scrn Negative (Negative) Ur Amphetamines Screen Negative (Negative) U Methamphetamines Scrn Negative (Negative) Ur MDMA Scrn (Ecstasy) Negative (Negative) U Benzodiazepines Scrn Negative (Negative) Urine Cocaine Screen Negative (Negative) U Marijuana (THC) Screen Negative (Negative) Ethyl Alcohol ( - 10) mg/dL SARS-CoV-2 (PCR) Negative (Negative) Point of Care Testing Glucose POC 83 Urine Dip Bedside Urine Glucose Negative Bedside Urine Bilirubin - Negative Bedside Urine Ketone - Negative Urine Specific [place] 1.010 Bedside Urine Occult Blood - Negative Bedside Urine pH 6.0 Bedside Urine Protein - Negative Bedside Urine Urobilinogen 0.2 Bedside Urine Nitrite - Negative Bedside Urine Leukocytes - Negative Esterase MDM Narrative Medical decision making narrative: Imaging is very reassuring and from the onset though he was initially treated as a potential stroke given neurologic symptoms his known cervical problems and the presence of pain in his neck and the popping sensation at the onset of this raises suspicion of a cervical radiculopathy as the likely primary diagnosis. Furthermore upon receipt of Imaging which is reassuring we started to focus more on this as the diagnosis. At no point was he with any time frame to intervene with this have been a stroke and his symptoms were not significant enough to suggest a code IR be activated. He was given Decadron, gabapentin, and oxycodone and demonstrates significant improvement in terms of sensation, strength and pain control. We have not heard back [facility], they do not take spine call from midnight to 6:00 a.m., we also attempted to call [facility], however they did not answer and still have not called back. At this point it would seem less critical as his symptoms are greatly improved in the presence of a neurosurgical emergency seems increasingly unlikely. Still plan to obtain MRI in the morning plus or minus neurosurgical consult <Deric Xiong MD - Last Filed: 11/28/22 22:30> Lab Data Labs: Lab Results 11/26/22 11/26/22 11/26/22 Range/Units 01:55 01:55 01:55 WBC 5.5 (4.5-11.0) X10^3/uL RBC 4.76 (4.5-5.9) X10^6/uL Hgb 13.9 (13.5-17.5) g/dL Hct 41.1 (41-53) % MCV 86.4 (80-100) fL MCH 29.2 (26-34) PG MCHC 33.8 (30-36) % RDW 13.2 (11.6-14.8) % Plt Count 193 (150-400) X10^3/uL Neut % (Auto) 40.2 L (50-75) % Lymph % (Auto) 46.9 H (25-40) % [place] % (Auto) 10.8 (3-14) % Eos % (Auto) 1.6 L (2-4) % Baso % (Auto) 0.5 (0-2) % Neut # (Auto) 2200 (0271-6934) /uL Lymph # (Auto) 2600 (5797-2609) /uL [place] # (Auto) 600 (0-900) /uL Eos # (Auto) 100 (0-450) /uL Baso # (Auto) 0 (0-100) /uL PT 13.8 H (10.1-12.7) SECONDS INR 1.2 (0.9-1.3) APTT 34 (26-36) SECONDS Sodium 140 (137-145) mmol/L Potassium 3.4 (3.4-5.1) mmol/L Chloride 102 (98-107) mmol/L Carbon Dioxide 27 (22-32) mmol/L BUN 11 (9-20) mg/dL Creatinine 0.88 (0.66-1.25) mg/dL Estimated GFR > 60 (>60) mL/min BUN/Creatinine Ratio 12.5 (6-22) Glucose 81 (70-100) mg/dL Calcium 9.1 (8.4-10.2) mg/dL Total Bilirubin 1.0 (0.2-1.3) mg/dL AST 25 (17-59) IU/L ALT 35 (<50) IU/L Alkaline Phosphatase 38 (38-126) U/L Total Creatine Kinase 60 (55-170) U/L CK-MB (CK-2) TNP CK-MB (CK-2) Rel Index TNP Troponin I < 0.012 (0.01-0.034) ng/mL Total Protein 7.4 (6.3-8.2) g/dL Albumin 4.5 (3.5-5.0) g/dL Globulin 2.9 (1.7-4.1) g/dL Albumin/Globulin Ratio 1.6 (1.0-2.8) Urine Color Urine Appearance Urine pH (4.5-8.0) Ur Specific [place] (1.000-1.035) Urine Protein (Negative) Urine Glucose (UA) (Negative) g/dL Urine Ketones (NEGATIVE) Urine Occult Blood (Negative) Urine Nitrate (Negative) Urine Bilirubin (NEGATIVE) Urine Urobilinogen (0.2) E.U./dL Ur Leukocyte Esterase (NEGATIVE) Urine RBC (0-5/HPF) Urine WBC (0-5/HPF) Urine Bacteria (None) Ur Culture Indicated? Micro UA Comment U Opiates 300ng/mL cut (Negative) Ur Oxycodone Screen (Negative) Urine Methadone Screen (Negative) Ur Barbiturates Screen (Negative) U Tricyclic Antidepress (Negative) Ur Phencyclidine Scrn (Negative) Ur Amphetamines Screen (Negative) U Methamphetamines Scrn (Negative) Ur MDMA Scrn (Ecstasy) (Negative) U Benzodiazepines Scrn (Negative) Urine Cocaine Screen (Negative) U Marijuana (THC) Screen (Negative) Ethyl Alcohol < 10 ( - 10) mg/dL SARS-CoV-2 (PCR) (Negative) 11/26/22 11/26/22 11/26/22 Range/Units 02:35 02:55 02:55 WBC (4.5-11.0) X10^3/uL RBC (4.5-5.9) X10^6/uL Hgb (13.5-17.5) g/dL Hct (41-53) % MCV (80-100) fL MCH (26-34) PG MCHC (30-36) % RDW (11.6-14.8) % Plt Count (150-400) X10^3/uL Neut % (Auto) (50-75) % Lymph % (Auto) (25-40) % [place] % (Auto) (3-14) % Eos % (Auto) (2-4) % Baso % (Auto) (0-2) % Neut # (Auto) (7590-7476) /uL Lymph # (Auto) (2973-8385) /uL [place] # (Auto) (0-900) /uL Eos # (Auto) (0-450) /uL Baso # (Auto) (0-100) /uL PT (10.1-12.7) SECONDS INR (0.9-1.3) APTT (26-36) SECONDS Sodium (137-145) mmol/L Potassium (3.4-5.1) mmol/L Chloride (98-107) mmol/L Carbon Dioxide (22-32) mmol/L BUN (9-20) mg/dL Creatinine (0.66-1.25) mg/dL Estimated GFR (>60) mL/min BUN/Creatinine Ratio (6-22) Glucose (70-100) mg/dL Calcium (8.4-10.2) mg/dL Total Bilirubin (0.2-1.3) mg/dL AST (17-59) IU/L ALT (<50) IU/L Alkaline Phosphatase (38-126) U/L Total Creatine Kinase (55-170) U/L CK-MB (CK-2) CK-MB (CK-2) Rel Index Troponin I (0.01-0.034) ng/mL Total Protein (6.3-8.2) g/dL Albumin (3.5-5.0) g/dL Globulin (1.7-4.1) g/dL Albumin/Globulin Ratio (1.0-2.8) Urine Color Yellow Urine Appearance Clear Urine pH 6.0 (4.5-8.0) Ur Specific [place] 1.010 (1.000-1.035) Urine Protein Negative (Negative) Urine Glucose (UA) Negative (Negative) g/dL Urine Ketones Negative (NEGATIVE) Urine Occult Blood Negative (Negative) Urine Nitrate Negative (Negative) Urine Bilirubin Negative (NEGATIVE) Urine Urobilinogen 0.2 (0.2) E.U./dL Ur Leukocyte Esterase Negative (NEGATIVE) Urine RBC None seen (0-5/HPF) Urine WBC None seen (0-5/HPF) Urine Bacteria None seen (None) Ur Culture Indicated? Cult not indicated Micro UA Comment Microscopic normal U Opiates 300ng/mL cut Negative (Negative) Ur Oxycodone Screen Negative (Negative) Urine Methadone Screen Negative (Negative) Ur Barbiturates Screen Negative (Negative) U Tricyclic Antidepress Negative (Negative) Ur Phencyclidine Scrn Negative (Negative) Ur Amphetamines Screen Negative (Negative) U Methamphetamines Scrn Negative (Negative) Ur MDMA Scrn (Ecstasy) Negative (Negative) U Benzodiazepines Scrn Negative (Negative) Urine Cocaine Screen Negative (Negative) U Marijuana (THC) Screen Negative (Negative) Ethyl Alcohol ( - 10) mg/dL SARS-CoV-2 (PCR) Negative (Negative) Point of Care Testing Glucose POC 83 Urine Dip Bedside Urine Glucose Negative Bedside Urine Bilirubin - Negative Bedside Urine Ketone - Negative Urine Specific [place] 1.010 Bedside Urine Occult Blood - Negative Bedside Urine pH 6.0 Bedside Urine Protein - Negative Bedside Urine Urobilinogen 0.2 Bedside Urine Nitrite - Negative Bedside Urine Leukocytes - Negative Esterase MDM Narrative Medical decision making narrative: Imaging is very reassuring and from the onset though he was initially treated as a potential stroke given neurologic symptoms his known cervical problems and the presence of pain in his neck and the popping sensation at the onset of this raises suspicion of a cervical radiculopathy as the likely primary diagnosis. Furthermore upon receipt of Imaging which is reassuring we started to focus more on this as the diagnosis. At no point was he with any time frame to intervene with this have been a stroke and his symptoms were not significant enough to suggest a code IR be activated. He was given Decadron, gabapentin, and oxycodone and demonstrates significant improvement in terms of sensation, strength and pain control. We have not heard back from [facility], they do not take spine call from midnight to 6:00 a.m., we also attempted to call [facility], however they did not answer and still have not called back. At this point it would seem less critical as his symptoms are greatly improved in the presence of a neurosurgical emergency seems increasingly unlikely. Still plan to obtain MRI in the morning plus or minus neurosurgical consult. [Tyrese] MRI completed, stable from prior. Discussed findings with pt and family at bedside. Discussed plan for outpatient management and followup with spine surgery. Return precautions discussed. Discharge Plan Departure Patient Disposition: Home Clinical Impression: Cervical radicular pain Instructions: DI for Cervical Radiculopathy Prescriptions: No Action oxycodone 5 mg tablet 5 mg PO Q6H PRN (Reason: pain) Qty: 10 0RF prednisone 20 mg tablet 40 mg PO DAILY Qty: 10 0RF dexamethasone 4 mg tablet 10 mg PO DAILY Qty: 5 0RF Referrals: Ollie Wiley MD [Primary Care Provider] - Stand Alone Forms: Patient Portal/API, Work Release Note
[2022-11-26 02:26] LABS: Add Manual Diff / Slide Review NO; Basophils Absolute Auto 0 /uL (0-100); Basophils Percent Auto 0.5 % (0-2); Eosinophils Absolute Auto 100 /uL (0-450); Eosinophils Percent Auto 1.6 % (2-4); Hematocrit 41.1 % (41-53); Hemoglobin 13.9 g/dL (13.5-17.5); Lymphocytes Absolute Auto 2600 /uL (1100-4500); Lymphocytes Percent Auto 46.9 % (25-40); Mean Corpuscular HGB Conc 33.8 % (30-36); Mean Corpuscular Hemoglobin 29.2 PG (26-34); Mean Corpuscular Volume 86.4 fL (80-100); Monocytes Absolute Auto 600 /uL (0-900); Monocytes Percent Auto 10.8 % (3-14); Neutrophils Absolute Auto 2200 /uL (1500-7000); Neutrophils Percent Auto 40.2 % (50-75); Platelet Count 193 X10^3/uL (150-400); Red Blood Cell Count 4.76 X10^6/uL (4.5-5.9); Red Cell Distribution Width 13.2 % (11.6-14.8); White Blood Cell Count 5.5 X10^3/uL (4.5-11.0)
[2022-11-26 02:28] LABS: INR 1.2 (0.9-1.3); Prothrombin Time 13.8 SECONDS (10.1-12.7)
[2022-11-26 02:31] LABS: PTT Partial Thromboplastin Tim 34 SECONDS (26-36)
[2022-11-26 02:40] LABS: Alanine Aminotransferase 35 IU/L (<50); Albumin 4.5 g/dL (3.5-5.0); Albumin Globulin Ratio 1.6 (1.0-2.8); Alkaline Phosphatase 38 U/L (38-126); Aspartate Aminotransferase 25 IU/L (17-59); BUN Creatinine Ratio 12.5 (6-22); Blood Urea Nitrogen 11 mg/dL (9-20); Calcium 9.1 mg/dL (8.4-10.2); Carbon Dioxide 27 mmol/L (22-32); Chloride 102 mmol/L (98-107); Creatine Kinase 60 U/L (55-170); Estimated Glomerular Filt Rate > 60 mL/min (>60); Ethanol (ETOH) < 10 mg/dL; Globulin 2.9 g/dL (1.7-4.1); Glucose 81 mg/dL (70-100); HEMOLYSIS < 15 (0-50); Potassium 3.4 mmol/L (3.4-5.1); Sodium 140 mmol/L (137-145); Total Protein 7.4 g/dL (6.3-8.2)
[2022-11-26 02:51] LABS: Troponin I < 0.012 ng/mL (0.01-0.034)
[2022-11-26 02:52] LABS: COVID19 -Nasal RAPID Negative (Negative)
[2022-11-26 03:20] LABS: Appearance Urine UA CLEAR; Bilirubin Urine UA NEGATIVE (NEGATIVE); Color Urine UA YELLOW; Glucose Urine UA NEGATIVE (Negative); Ketones Urine UA NEGATIVE (NEGATIVE); Leukocyte Esterase Urine UA NEGATIVE (NEGATIVE); Nitrite Urine UA NEGATIVE (Negative); Occult Blood Urine UA NEGATIVE (Negative); Protein Urine UA NEGATIVE (Negative); Urobilinogen Urine UA 0.2 E.U./dL (0.2)
[2022-11-26 03:22] LABS: UR Morphine/Opiate cutoff 300 Negative (Negative); Ur Creatinine Normal (Normal); Ur Specific Gravity Normal (Normal); Urine Amphetamines Negative (Negative); Urine Barbiturates Negative (Negative); Urine Benzodiazepines Negative (Negative); Urine Cocaine Negative (Negative); Urine MDMA Negative (Negative); Urine Methadone Negative (Negative); Urine Methamphetamines Negative (Negative); Urine Oxycodone Negative (Negative); Urine Phencyclidine Negative (Negative); Urine Tetrahydrocannabinol Negative (Negative); Urine Tricyclic Antidepressant Negative (Negative); Urine pH Normal (Normal)
[2022-11-26 03:25] LABS: Bacteria Urine None Seen; Culture Indicated Urine Cult Not Indicated; RBC Urine None Seen (0-5/HPF); Urine Comments Microscopic Normal; WBC Urine None Seen (0-5/HPF)
[2022-11-26] MEDS: OXYCODONE/ACETAMINOPHEN 5/325 TABLET 1 TAB PO (04:03)
[2022-11-26] MEDS: GABAPENTIN 300 MG CAPSULE PO (04:04)
[2022-11-26] MEDS: DEXAMETHASONE 10 MG/ML VIAL IV (04:04)
--- NOTE | 2022-11-26 04:53 | DI.MRI.S_ITS ---
PROCEDURE: MR CERVICAL SPINE WO CON INDICATIONS: significant LUE numbness, weakness, pain, sudden onset TECHNIQUE: Noncontrast sagittal T1 spin echo and T2 fast spin echo, sagittal STIR, foraminal oblique sagittal T2 fast spin echo, and axial gradient echo or T2 fast spin echo through the cervical spine. COMPARISON: [facility], CT, CT ANGIO HEAD AND NECK, 11/26/2022, 2:32. [facility], MR, MR CERVICAL SPINE WO CON, 03/25/2022, 17:42. FINDINGS: Image quality: Excellent. Alignment and Curvature: There is normal bony alignment. Bone Marrow: Marrow demonstrates normal overall signal. Spinal Cord: Visualized spinal cord has normal size and signal. No cerebellar tonsillar herniation. Paraspinous Soft Tissues: No paravertebral masses. Prevertebral soft tissues are normal in thickness. C2-C3: Normal appearance. C3-C4: The disc height is well-preserved. Loss of disc signal is seen at this level. Mild to moderate disc osteophyte complex is seen, with a central disc extrusion, with superior migration disc material. Mild facet joint hypertrophy is seen. There is [id number] right-sided mild left-sided neural foraminal narrowing. Moderate central canal narrowing is seen. There is associated mass effect upon the ventral spinal cord. No associated cord edema is seen. When comparison is made with the prior images, these findings are similar. C4-C5: The disc height and disk signal are well-preserved. A mild degree of generalized disc osteophyte complex is seen. Mild facet joint hypertrophy is seen. There is mild right-sided and no left-sided neural foraminal narrowing. No central canal narrowing is seen. When comparison is made with the prior images, these findings are similar. C5-C6: The disc height and disk signal are well-preserved. A mild degree of generalized disc osteophyte complex is seen. Mild to moderate facet hypertrophy is seen at this level. Moderate bilateral neural foraminal narrowing can be seen, right worse than left. No significant central canal narrowing is seen. When comparison is made with the prior images, these findings are similar. C6-C7: No significant abnormality is seen. C7-T1: Normal appearance. IMPRESSION: At the C3-C4 level, there is a central disc extrusion, with associated mass effect upon the ventral spinal cord. The appearance is unchanged compared to 03/25/2022. Milder degenerative changes are seen elsewhere. Dictated by: Emanuel William M.D. on 11/26/2022 at 9:28 Approved by: Emanuel William M.D. on 11/26/2022 at 9:33
== END 2022-11-26 11:30 | disposition home or self-care (01) ==
PROVIDERS: Emergency Medicine; Emergency Provider Emergency Medicine; PCP Family Medicine
DX: M54.12 Radiculopathy, cervical region (principal); R29.818 Other symptoms and signs involving the nervous system; R53.1 Weakness; R29.703 NIHSS score 3; Z20.822 Contact with and (suspected) exposure to COVID-19
CPT/HCPCS: 36415; 70450; 70496; 70498; 72141; 80053; 80305; 80320; 81001; 81003; 82550; 82962; 84484; 85025; 85610; 85730; 87635; 93005; 93010; 96374; 99284; 99285; C9803; J1100; Q9967